=== PATIENT | male | born 1985 | race Caucasian/White ===

== ENCOUNTER 2017-08-21 02:02 | Emergency (ER) | payer OTHER ==
[~2017-08-21] VITALS: Ht 180.3 cm; Wt 90.7 kg
--- NOTE | 2017-08-21 02:15 | NUR ---
PT AMBULATORY TO ER BED 7, PT BIB SELF C/O KIDNEY STONE PAIN. PT STATES WENT TO ER ON MONDAY NITGHT AND THE DOCTOR TOLD HIM HE HAD KIDNEY STONES. PT PLACED IN GOWN AND ON ENGINEER PROCESS. VSS/RESP EVEN UNLABORED/NAD NOTED/SKIN WARM AND DRY/DENIES N-V-D/DENIES URINARY RETENTION/AOX4. AWAITING MD MULLEN.
--- NOTE | 2017-08-21 02:23 | NUR ---
18G IV TO L AC USING ASEPTIC TECH, BLOOD SAMPLE HANDED OVER TO LAB AT BEDSIDE. IV FLUSHES EASILY WITH NS.
[2017-08-21] MEDS ORDERED: HYDROMORPHONE INJ 2 MG/ML DISP.SYRIN ONE (02:28)
[2017-08-21] MEDS ORDERED: ONDANSETRON HCL/PF 4 MG/2 ML VIAL ONE (02:28)
[2017-08-21] MEDS ORDERED: HYDROMORPHONE INJ 2 MG/ML DISP.SYRIN IV ONE (02:30)
[2017-08-21] MEDS ORDERED: IV NS 0.9% 1,000 ML BAG IV ONE (02:30)
[2017-08-21] MEDS ORDERED: ONDANSETRON HCL/PF 4 MG/2 ML VIAL IVP ONE (02:30)
--- NOTE | 2017-08-21 02:36 | NUR ---
PT TO CT VIA STRETCHER, VSS.
[2017-08-21 02:39] LABS: BASOPHILS % (AUTO) 0.3 % (0.0-2.0); EOSINOPHILS # (AUTO) 0.2 /CMM (0.0-0.7); EOSINOPHILS % (AUTO) 1.4 % (0.0-6.0); HEMATOCRIT 45 % (39-51); HEMOGLOBIN 14.7 g/dL (13.5-17.5); LYMPHOCYTES # (AUTO) 1.9 /CMM (0.8-4.8); LYMPHOCYTES % (AUTO) 16.3 % (20.0-44.0); MEAN CORPUSCULAR HEMOGLOBIN 28 PG (26.0-33.0); MEAN CORPUSCULAR HGB CONC 33 g/dl (31.0-36.0); MEAN CORPUSCULAR VOLUME 85 fL (80-96); MONOCYTES # (AUTO) 0.7 /CMM (0.1-1.30); MONOCYTES % (AUTO) 6.5 % (2.0-12.0); NEUTROPHILS # (AUTO) 8.6 /CMM (1.8-8.9); NEUTROPHILS % (AUTO) 75.5 % (43.0-81.0); PLATELET COUNT (AUTO) 282 /CMM (150-450); RDW COEFFICIENT OF VARIATION 13.3 (11.5-15.0); RED BLOOD CELL COUNT(AUTO) 5.28 MIL/uL (4.5-6.0); WHITE BLOOD COUNT (AUTO) 11.4 K/uL (4.3-11.0)
--- NOTE | 2017-08-21 02:47 | NUR ---
PT BACK FROM CT.
--- NOTE | 2017-08-21 02:47 | NUR ---
URINE SPECIMEN OBTAINED AND SENT TO THE LAB.
[2017-08-21 02:49] LABS: CALCIUM, SERUM 9.6 mg/dL (8.5-10.1); CREATININE 1.1 mg/dL (0.6-1.3); POTASSIUM 3.8 mmol/L (3.5-5.1)
[2017-08-21 02:53] LABS: INR 1.03 (0.87-1.13); PROTHROMBIN TIME 10.7 SECS (9.5-12.7)
[2017-08-21 02:54] LABS: APPEARANCE,URINE CLEAR (CLEAR); BILIRUBIN,URINE NEGATIVE (NEGATIVE); BLOOD, URINE 3+ Ery/uL (NEGATIVE); COLOR,URINE YELLOW (YELLOW); KETONES,URINE NEGATIVE (NEGATIVE); LEUKOCYTE ESTERASE ,URINE NEGATIVE (NEGATIVE); NITRITE, URINE NEGATIVE (NEGATIVE); PH,URINE 5.5 (5.0-8.0); PROTEIN,URINE NEGATIVE (NEGATIVE); UGLUCOSE NEGATIVE (NEGATIVE); UROBILINOGEN,URINE 0.2 EU/dL (0.2)
[2017-08-21 02:55] LABS: BILIRUBIN,DIRECT 0.1 mg/dL (0.0-0.2); BILIRUBIN,TOTAL 0.3 mg/dL (0.2-1.0); TOTAL PROTEIN, SERUM 7.4 g/dL (6.4-8.2)
[2017-08-21 02:58] LABS: BACTERIA,URINE Rare /HPF (None Seen); SQUAMOUS EPITHELIAL CELL,UR None Seen /HPF (None Seen); WBC,URINE 0-2 /HPF (0-3)
--- NOTE | 2017-08-21 04:05 | NUR ---
IV removed. Catheter intact and site benign. Pressure and 4x4 applied to site. No bleeding noted. Patient discharged to home in stable condition. Written and verbal after care instructions given, patient instructed no to drive. Patient verbalizes understanding of instruction. Pt ambulatory with a steady gait.
[2017-08-21 04:06] VITALS: BP 129/90
== END 2017-08-21 04:07 | disposition home or self-care (01) ==
LOC: ER 02:04
DX: N13.2 Hydronephrosis with renal and ureteral calculous obstruction (principal)
CPT/HCPCS: 36415; 74176; 80048; 80076; 81001; 83690; 85025; 85730; 96361; 96374; 96375; 99285; A4606; J1170; J2405; J7030; Z7610; 81000-TC